=== PATIENT | male | born 1970 | race Caucasian/White ===

== ENCOUNTER 2019-08-09 20:41 | Emergency (ER) | payer MEDICAID ==
[~2019-08-09] VITALS: Ht 180.3 cm; Wt 100.0 kg
[~2019-08-09 20:41] MED LIST: NO HOME MEDS
[2019-08-09] MEDS ORDERED: normal saline 1000ML IV soln IVB ONE (21:10)
[2019-08-09] MEDS ORDERED: dicyclomine 10 MG capsule PO ONE (21:10)
[2019-08-09 21:22] LABS: ALANINE AMINOTRANSFERASE 62 U/L (12-78); ALBUMIN 3.7 G/DL (3.4-5.0); ALBUMIN/GLOBULIN RATIO 0.9 (1.1-1.5); ALKALINE PHOSPHATASE 161 IU/L (46-116); AMYLASE 32 U/L (25-115); ANION GAP 9 (8-16); ASPARTATE AMINO TRANSFERASE 29 U/L (10-37); BILIRUBIN,TOTAL 0.3 MG/DL (0.1-1.0); BLOOD UREA NITROGEN 15 MG/DL (7-18); CALCIUM 8.9 MG/DL (8.5-10.1); CHLORIDE 106 MMOL/L (99-107); CREATININE 1.15 MG/DL (0.60-1.10); GLUCOSE 98 MG/DL (70-104); LIPASE 92 U/L (73-393); POTASSIUM 3.6 MMOL/L (3.5-5.1); SODIUM 142 MMOL/L (135-145); TOTAL CARBON DIOXIDE 27.3 MMOL/L (24-32); TOTAL PROTEIN 7.6 G/DL (6.4-8.2); eGFR 68 ML/MIN
[2019-08-09 21:30] LABS: BASOPHILS % (AUTO) 0.2 % (0-1); EOSINOPHILS # (AUTO) 0.2 X10'3 (0-0.9); EOSINOPHILS % (AUTO) 3.2 % (0-6); HEMATOCRIT 47.7 % (42.0-52.0); HEMOGLOBIN 16.2 g/dl (14.0-17.9); LYMPHOCYTES # (AUTO) 1.4 X10'3 (1.1-4.8); LYMPHOCYTES % (AUTO) 19.7 % (21-51); MEAN CORPUSCULAR HEMOGLOBIN 29.9 PG (27.0-31.0); MEAN PLATELET VOLUME 7.9 FL (7.4-10.4); MONOCYTES # (AUTO) 0.6 X10'3 (0-0.9); MONOCYTES % (AUTO) 7.9 % (2-12); PLATELET COUNT 235 X10'3 (140-440); RED BLOOD COUNT 5.41 X10'6 (4.70-6.10); WHITE BLOOD COUNT 7.2 X10'3 (4.5-11.0)
--- NOTE | 2019-08-09 22:03 | NUR ---
Patient is resting comfortably in bed with acquaintance at bedside. Patient updated on POC.
[2019-08-09 22:23] VITALS: BP 133/97
== END 2019-08-09 22:24 | disposition home or self-care (01) ==
LOC: ER 20:42
DX: R19.7 Diarrhea, unspecified (principal); R10.13 Epigastric pain; R11.0 Nausea; F17.220 Nicotine dependence, chewing tobacco, uncomplicated; Z88.5 Allergy status to narcotic agent
CPT/HCPCS: 36415; 80053; 82150; 83690; 85025; 85610; 99283; J7030

== ENCOUNTER 2022-08-12 20:54 | Emergency (ER) | payer MEDICAID ==
[~2022-08-12] VITALS: Ht 160 cm; Wt 105.0 kg
[2022-08-12] MEDS ORDERED: ketorolac trometh inj. 60 MG/2 ML VIAL IM ONE (23:10)
[2022-08-12] MEDS ORDERED: acetaminophen 325mg tablet PO ONE (23:10)
[2022-08-12] MEDS ORDERED: colchicine 0.6mg tablet PO ONE ×2 (23:10)
[2022-08-12] MEDS ORDERED: triamcinolone acetonide 40mg/ml inj IM ONE (23:10)
[2022-08-12] MEDS ORDERED: PRED20TA PO (23:15)
[2022-08-12] MEDS ORDERED: COL0.6T PO (23:15)
[2022-08-12] MEDS ORDERED: INDO50CA96 PO (23:15)
[2022-08-13 00:02] VITALS: BP 141/87
== END 2022-08-13 00:09 | disposition home or self-care (01) ==
LOC: ER 20:55
DX: M10.9 Gout, unspecified (principal); Z88.5 Allergy status to narcotic agent; Z56.0 Unemployment, unspecified
CPT/HCPCS: 73630; 96372; 99284; J1885; J3301

== ENCOUNTER 2024-11-21 22:06 | Emergency (ER) | payer MEDICAID, OTHER ==
[~2024-11-21] VITALS: Ht 180.3 cm; Wt 99.8 kg
[~2024-11-21 22:06] MED LIST changes: +COL0.6T PO; +INDO50CA96 PO
[2024-11-21 22:11] VITALS: BP 124/90; PULSE 101; RESP 16; TEMP 97.6; O2SAT 97
[2024-11-21] MEDS ORDERED: AMOX-580 PO (22:48)
[2024-11-21] MEDS: amox tr/potassium clavulanate 500mg/125mg TAB PO ONE (23:19)
== END 2024-11-21 23:21 | disposition home or self-care (01) ==
LOC: ER 22:07
DX: K04.7 Periapical abscess without sinus (principal); Z88.5 Allergy status to narcotic agent
CPT/HCPCS: 99283

== ENCOUNTER 2025-04-25 15:09 | Emergency (ER) | payer OTHER ==
[~2025-04-25] VITALS: Ht 180.3 cm; Wt 100.0 kg
[2025-04-25 15:16] VITALS: BP 145/96; PULSE 96; RESP 16; TEMP 98.2; O2SAT 100
[2025-04-25 15:54] LABS: BILIRUBIN,URINE SMALL (Neg); CLARITY,URINE CLEAR (Clear); COLOR,URINE YELLOW (Yellow); GLUCOSE, URINE NEGATIVE (Neg); KETONES,URINE NEGATIVE (Neg); LEUKOCYTE ESTERASE ,URINE NEGATIVE (Neg); NITRITES, URINE NEGATIVE (Neg); OCCULT BLOOD,URINE NEGATIVE (Neg); PH,URINE 5.5 (4.8-8.0); PROTEIN,URINE NEGATIVE (Neg); UROBILINOGEN,URINE 0.2 E.U/dL (0.2-1.0)
[2025-04-25 16:02] LABS: UA COLLECTION TYPE VOIDED
--- NOTE | 2025-04-25 16:21 | Physician Documentation ---
History of Present Illness ~ Chief Complaint: Flank Pain Stated Complaint: ABDOMINAL PAIN Time Seen by MD: 16:57 OK to notify your PCP?: Yes Primary Medical Doctor: [facility] Source: patient Mode of Arrival: POV Exam Limitations: no limitations HPI 55-year-old male presents with bilateral flank pain which originated in his lower abdomen and has started radiating to his bilateral flanks, it started this morning. He does not have a history of a kidney stone. He states he has had a history of UTI and this feels similar. He has not taken any medications for his symptoms. Medication Reconciliation Allergies: Coded Allergies: codeine (Verified Adverse Reaction, Unknown, 11/21/24) Scheduled Colchicine (Colcrys), 1 TAB PO BID Indomethacin (Indomethacin), 1 CAP PO Q8H Miscellaneous Medications Home Med List (No Home Medications), (Reported) Past Medical History Past Medical History: Extremity Fracture, Cellulitis Past Surgical History: no surgical history Patient History: Patient reports no known family medical history. Alcohol Use: None Drug Use: none Lives with: Mother Lives In: Home Occupation: unemployed Review of Systems All Other Systems at this time: Reviewed and Negative Constitutional: Denies: chills, fever, weakness Eyes: Denies: pain, blurred vision ENT: Denies: ear pain, nose pain, throat pain, mouth pain Respiratory: Denies: cough, shortness of breath Cardiovascular: Denies: chest pain, palpitations Gastrointestinal: Denies: abdominal pain, nausea, vomiting Genitourinary: Denies: burning, dysuria Male Genitalia: Denies: penile discharge, testicular pain Neurological: Denies: headache, dizziness Musculoskeletal: Denies: pain, swelling Integumentary: Denies: rash, lesions Allergic/Immunologic: Denies: hives, itching Hematologic/Lymphatic: Denies: no symptoms reported Psychiatric: Denies: depression, anxiety Physical Exam Vital Signs: RN Vital Signs have been reviewed: Yes, Temperature: 98.2, Heart Rate: 96, Respiratory Rate: 16, BP: 145/96, Pulse Oximetry: 100, Weight: 100.000 Oxygen Flow Rate: 0 Pulse Oximetry Reflects: adequate oxygenation Physical Exam General: Alert, no distress. HEENT: No injection, moist mucous membranes. Neck: Full range of motion. Respiratory: No respiratory distress, equal chest rise and fall. Chest: No accessory muscle use. Cardiovascular: Regular rate and rhythm. Gastrointestinal: Nondistended. Extremities: Normal range of motion, no deformity. Back: No CVA tenderness bilaterally. Neurologic: Oriented x4. Psychiatric: Normal mood and affect. Skin: Normal color, warm and dry. Progress Results/Orders Results/Orders Vital Signs 04/25/25 15:16 Temp 98.2 Pulse 96 Resp 16 B/P (MAP) 145/96 Pulse Ox 100 O2 Flow Rate 0 Laboratory Tests Test 04/25/25 15:18 04/25/25 15:55 Urine Specimen Description Voided Urine Color Yellow Urine Clarity Clear Urine pH 5.5 Urine Specific Korbel >=1.030 Urine Protein Negative Urine Glucose (UA) Negative Urine Ketones Negative Urine Occult Blood Negative Urine Nitrite Negative Urine Bilirubin Small Urine Urobilinogen 0.2 Urine Leukocyte Esterase Negative Urine Culture Indicated Not ind Volume Urine Centrifuged 10 ml Urine Comment White Blood Count 8.8 Red Blood Count 5.94 Hemoglobin 17.4 Hematocrit 51.1 Mean Corpuscular Volume 86.1 Mean Corpuscular Hemoglobin 29.4 Mean Corpuscular Hemoglobin Concent 34.1 Red Cell Distribution Width 13.7 Platelet Count 278 Mean Platelet Volume 8.3 Neutrophils (%) (Auto) 63.2 Lymphocytes (%) (Auto) 27.0 Monocytes (%) (Auto) 7.7 Eosinophils (%) (Auto) 1.2 Basophils (%) (Auto) 0.9 Neutrophils # (Auto) 5.5 Lymphocytes # (Auto) 2.4 Monocytes # (Auto) 0.7 Eosinophils # (Auto) 0.1 Basophils # (Auto) 0.1 CBC Comment Sodium Level 141 Chloride Level 102 Carbon Dioxide Level 28.7 Anion Gap 10 Blood Urea Nitrogen 17 Creatinine 1.20 H Estimated GFR/1.73 m2 63 BUN/Creatinine Ratio 14.2 Glucose Level 103 Calcium Level 8.9 Total Bilirubin 0.5 Alanine Aminotransferase (ALT/SGPT) 41 Alkaline Phosphatase 118 H Total Protein 7.7 Albumin 4.0 Globulin 3.7 Albumin/Globulin Ratio 1.1 Lipase 28 Chemistry Comments Medical Decision Making Findings 55-year-old male presents with bilateral flank pain which originated in his lower abdomen and has started radiating to his bilateral flanks, it started this morning. He does not have a history of a kidney stone. He states he has had a history of UTI and this feels similar. He has not taken any medications for his symptoms. Patient did have labs drawn and urinalysis done that was completely unremarkable. Patient has benign history and physical exam findings coupled with his normal labs. Patient will be discharged and will return to ED with any worsening, concerning or changing symptoms. Departure Disposition: 01 HOME / SELF CARE / HOMELESS Impression: Primary Impression: Flank pain Condition: Stable Additional Instructions: Patient did have labs drawn and urinalysis done that was completely unremarkable. Patient has benign history and physical exam findings coupled with his normal labs. Patient will be discharged and will return to ED with any worsening, concerning or changing symptoms. Referrals: NO PRIMARY CARE PROVIDER (PCP) Additional Comment Medical Screen Exam This patient recieved a medical screening examination. After reviewing the individual's medical complaints with presenting symptoms and performing an appropriate physical examination, it was determined that no immediate life- threatening emergency medical condition is present. This individual is also not a women having contractions. Signature Scribe Signature: No scribe Attestation: No scribe ADRIENNE REMY [employer] Apr 25, 2025 16:21 ASAEL THRASHER PAC Apr 25, 2025 17:22
[2025-04-25 16:55] LABS: BASOPHILS # (AUTO) 0.1 X10'3 (0-0.2); BASOPHILS % (AUTO) 0.9 % (0-1); EOSINOPHILS # (AUTO) 0.1 X10'3 (0-0.9); EOSINOPHILS % (AUTO) 1.2 % (0-6); HEMATOCRIT 51.1 % (42.0-52.0); HEMOGLOBIN 17.4 g/dl (14.0-17.9); LYMPHOCYTES # (AUTO) 2.4 X10'3 (1.1-4.8); MEAN CORPUSCULAR HEMOGLOBIN 29.4 PG (27.0-31.0); MEAN CORPUSCULAR HGB CONC 34.1 g/dL (33.0-36.5); MEAN CORPUSCULAR VOLUME 86.1 FL (78-98); MEAN PLATELET VOLUME 8.3 FL (7.4-10.4); MONOCYTES # (AUTO) 0.7 X10'3 (0-0.9); MONOCYTES % (AUTO) 7.7 % (2-12); NEUTROPHILS # (AUTO) 5.5 X10'3 (1.8-7.7); NEUTROPHILS % (AUTO) 63.2 % (42-75); PLATELET COUNT 278 X10'3 (140-440); RED BLOOD COUNT 5.94 X10'6 (4.70-6.10); RED CELL DISTRIBUTION WIDTH 13.7 % (11.5-14.5); WHITE BLOOD COUNT 8.8 X10'3 (4.5-11.0)
[2025-04-25 17:06] LABS: ALANINE AMINOTRANSFERASE 41 U/L (12-78); ALBUMIN/GLOBULIN RATIO 1.1 (1.1-1.5); ALKALINE PHOSPHATASE 118 IU/L (46-116); ANION GAP 10 (8-16); BILIRUBIN,TOTAL 0.5 MG/DL (0.1-1.0); BLOOD UREA NITROGEN 17 MG/DL (7-18); BUN/CREATININE RATIO 14.2 (10.0-20.0); CALCIUM 8.9 MG/DL (8.5-10.1); CHLORIDE 102 MMOL/L (99-107); GLUCOSE 103 MG/DL (70-104); LIPASE 28 U/L (16-77); SODIUM 141 MMOL/L (135-145); TOTAL CARBON DIOXIDE 28.7 MMOL/L (24-32); TOTAL PROTEIN 7.7 G/DL (6.4-8.2); eCRCL 74 ML/MIN; eGFR 63 ML/MIN
[2025-04-25 17:26] LABS: ASPARTATE AMINO TRANSFERASE 24 U/L (10-37); POTASSIUM 4.6 MMOL/L (3.5-5.1)
== END 2025-04-25 17:08 | disposition left against medical advice (07) ==
LOC: ER 15:10
DX: R10.32 Left lower quadrant pain (principal); R10.31 Right lower quadrant pain; Z88.5 Allergy status to narcotic agent; Z88.8 Allergy status to other drugs, medicaments and biological substances
CPT/HCPCS: 36415; 80053; 81003; 83690; 85025; 99283